=== PATIENT | female | born 1970 | race Hispanic/Latino ===

== ENCOUNTER 2017-05-08 18:05 | Emergency (ER) | payer MEDICARE ==
[~2017-05-08 18:05] MED LIST: AMLO5TAB4 PO; ATEN25TA PO; CALC500T13 PO; FERR324T4 PO; Glipizide PO; ONDA4TAB4 PO; SIMV20TA6 PO
== END 2017-05-08 18:54 | disposition home or self-care (01) ==
LOC: EDH 18:05
DX: S90.31XA Contusion of right foot, initial encounter (principal); I12.0 Hypertensive chronic kidney disease with stage 5 chronic kidney disease or end stage renal disease; E11.22 Type 2 diabetes mellitus with diabetic chronic kidney disease; N18.6 End stage renal disease; Z90.49 Acquired absence of other specified parts of digestive tract; Z88.0 Allergy status to penicillin; Z88.8 Allergy status to other drugs, medicaments and biological substances; W08.XXXA Fall from other furniture, initial encounter; Y93.89 Activity, other specified; Y92.89 Other specified places as the place of occurrence of the external cause; Y99.8 Other external cause status
CPT/HCPCS: 73630

== ENCOUNTER 2017-06-16 23:10 | Emergency (ER) | payer MEDICARE ==
[2017-06-16] MEDS ORDERED: ONDANSETRON HCL MDV 20ML 2 MG/ML VIAL ONE (23:37)
[2017-06-16 23:40] LABS: BASOPHILS % (AUTO) 1.3 % (0.0-5.0); EOSINOPHILS % (AUTO) 3.1 % (0.0-8.0); HEMATOCRIT 36.4 % (36-48); LYMPHOCYTES % (AUTO) 18.2 % (21.0-51.0); MEAN CORPUSCULAR HEMOGLOBIN 34.6 pg (27.0-33.0); MEAN CORPUSCULAR HGB CONC 33.7 g/dL (32.0-36.0); MEAN CORPUSCULAR VOLUME 102.5 fL (79-99); MONOCYTES % (AUTO) 6.2 % (3.0-13.0); NEUTROPHILS % (AUTO) 71.2 % (40.0-77.0); PLATELET COUNT (AUTO) 194 K/uL (130-400); RED BLOOD CELL COUNT(AUTO) 3.55 MIL/uL (4.00-5.50); RED CELL DISTRIBUTION WIDTH 14.8 % (11.0-15.5)
[2017-06-16 23:44] LABS: CARBON DIOXIDE 32 mmol/L (21-32); CHLORIDE 98 mmol/L (101-111); CREATININE 5.2 mg/dL (0.5-1.5); GLOMERULAR FILTR. RATE CALC 9 mL/min (>60); GLUCOSE,RANDOM 344 mg/dL (70-105); SODIUM SERUM 137 mmol/L (136-145); UREA NITROGEN, BLOOD 17 mg/dL (7-18)
[2017-06-16 23:46] LABS: INR 0.95 (0.85-1.15); PARTIAL THROMBOPLASTIN TIME 24.5 SEC (26.3-35.5)
[2017-06-16 23:57] LABS: ALANINE AMINOTRANSFERASE 15 U/L (12-78); ALBUMIN 3.6 g/dL (3.5-5.0); AMYLASE 51 U/L (25-115); ASPARTATE AMINOTRANSFERASE 16 U/L (10-37); BILIRUBIN,TOTAL 0.3 mg/dL (0.2-1.0); CREATINE KINASE MB < 0.5 ng/mL (0.5-3.6); CREATINE KINASE, TOTAL 34 U/L (21-232); LIPASE 153 U/L (114-286); TOTAL PROTEIN, SERUM 7.9 g/dL (6.0-8.3)
== END 2017-06-17 01:18 | disposition home or self-care (01) ==
LOC: EDH 23:10
DX: I12.0 Hypertensive chronic kidney disease with stage 5 chronic kidney disease or end stage renal disease (principal); R11.2 Nausea with vomiting, unspecified; E11.22 Type 2 diabetes mellitus with diabetic chronic kidney disease; N18.6 End stage renal disease; H93.19 Tinnitus, unspecified ear; Z99.2 Dependence on renal dialysis; Z98.890 Other specified postprocedural states; Z90.49 Acquired absence of other specified parts of digestive tract
CPT/HCPCS: 36415; 80053; 82150; 82550; 82553; 83690; 84484; 85025; 85610; 85730; 93005; 96374

== ENCOUNTER 2017-06-17 14:06 | Emergency (ER) | payer MEDICARE | END 2017-06-17 15:20 | disposition home or self-care (01) | LOC: EDH 14:06 | DX: S92.355A Nondisplaced fracture of fifth metatarsal bone, left foot, initial encounter for closed fracture (principal); E11.22 Type 2 diabetes mellitus with diabetic chronic kidney disease; I12.0 Hypertensive chronic kidney disease with stage 5 chronic kidney disease or end stage renal disease; N18.6 End stage renal disease; Z88.0 Allergy status to penicillin; Z88.8 Allergy status to other drugs, medicaments and biological substances; X50.0XXA Overexertion from strenuous movement or load, initial encounter; Y93.89 Activity, other specified; Y92.098 Other place in other non-institutional residence as the place of occurrence of the external cause; Y99.8 Other external cause status | CPT/HCPCS: 73630 ==

== ENCOUNTER 2017-07-10 15:20 | Emergency (ER) | payer MEDICARE | END 2017-07-10 16:46 | disposition home or self-care (01) | LOC: EDH 15:20 | DX: S30.0XXA Contusion of lower back and pelvis, initial encounter (principal); E11.22 Type 2 diabetes mellitus with diabetic chronic kidney disease; I12.0 Hypertensive chronic kidney disease with stage 5 chronic kidney disease or end stage renal disease; N18.6 End stage renal disease; Z88.0 Allergy status to penicillin; Z91.041 Radiographic dye allergy status; W18.39XA Other fall on same level, initial encounter; Y93.89 Activity, other specified; Y92.89 Other specified places as the place of occurrence of the external cause; Y99.8 Other external cause status | CPT/HCPCS: 72220 ==

== ENCOUNTER 2017-07-23 05:29 | Emergency (ER) | payer MEDICARE ==
[2017-07-23] MEDS ORDERED: CLONIDINE HCL 0.1 MG TABLET ONE (06:06)
[2017-07-23 06:55] LABS: APPEARANCE,URINE CLEAR (CLEAR); BILIRUBIN,URINE NEGATIVE (NEGATIVE); COLOR,URINE YELLOW (YELLOW); GLUCOSE, URINE (UA) >=1000 mg/dL (NEGATIVE); KETONES,URINE NEGATIVE (NEGATIVE); LEUKOCYTE ESTERASE ,URINE NEGATIVE (NEGATIVE); NITRATE,URINE NEGATIVE (NEGATIVE); OCCULT BLOOD,URINE NEGATIVE (NEGATIVE); PH,URINE 7.5 (5.0-8.0); PROTEIN,URINE 100 (NEGATIVE); UROBILINOGEN,URINE 0.2 mg/dL (0.2-1.0)
[2017-07-23 07:43] LABS: BACTERIA,URINE Rare /HPF (None Seen); RBC,URINE 0-1 /HPF (0-1); SQUAMOUS EPITHELIAL CELL,UR Few /HPF (0-2)
== END 2017-07-23 07:38 | disposition home or self-care (01) ==
LOC: EDH 05:29
DX: I12.0 Hypertensive chronic kidney disease with stage 5 chronic kidney disease or end stage renal disease (principal); N18.6 End stage renal disease; F41.9 Anxiety disorder, unspecified; K21.9 Gastro-esophageal reflux disease without esophagitis; Z99.2 Dependence on renal dialysis; Z88.0 Allergy status to penicillin; Z88.8 Allergy status to other drugs, medicaments and biological substances; Z98.890 Other specified postprocedural states
CPT/HCPCS: 81001; 82948

== ENCOUNTER 2017-07-26 08:35 | Emergency (ER) | payer MEDICARE ==
[2017-07-26 09:09] LABS: BASOPHILS % (AUTO) 0.8 % (0.0-5.0); EOSINOPHILS % (AUTO) 2.5 % (0.0-8.0); HEMATOCRIT 36.8 % (36-48); LYMPHOCYTES % (AUTO) 28.6 % (21.0-51.0); MEAN CORPUSCULAR HEMOGLOBIN 34.1 pg (27.0-33.0); MEAN CORPUSCULAR HGB CONC 35.2 g/dL (32.0-36.0); MEAN CORPUSCULAR VOLUME 96.8 fL (79-99); MONOCYTES % (AUTO) 6.7 % (3.0-13.0); NEUTROPHILS % (AUTO) 61.4 % (40.0-77.0); NUCLEATED RED BLOOD CELLS 0.1 % (0.0-0.19); PLATELET COUNT (AUTO) 273 K/uL (130-400); RED CELL DISTRIBUTION WIDTH 14.2 % (11.0-15.5); WHITE BLOOD COUNT (AUTO) 8.9 K/uL (4.8-10.8)
[2017-07-26 09:22] LABS: CREATININE 5.1 mg/dL (0.5-1.5); POTASSIUM 3.8 mmol/L (3.5-5.1)
[2017-07-26 09:28] LABS: INR 0.89 (0.85-1.15); PARTIAL THROMBOPLASTIN TIME 26.8 SEC (26.3-35.5); PROTHROMBIN TIME 9.4 SEC (9.6-11.6)
[2017-07-26 09:37] LABS: ALBUMIN 3.9 g/dL (3.5-5.0); BILIRUBIN,TOTAL 0.4 mg/dL (0.2-1.0); CREATINE KINASE MB 0.8 ng/mL (0.5-3.6); TOTAL PROTEIN, SERUM 8.3 g/dL (6.0-8.3)
[2017-07-26] MEDS ORDERED: LORAZEPAM 2 MG/ML 1 ML VIAL ONE (11:37)
== END 2017-07-26 12:53 | disposition home or self-care (01) ==
LOC: EDH 08:35
DX: E11.22 Type 2 diabetes mellitus with diabetic chronic kidney disease (principal); I12.0 Hypertensive chronic kidney disease with stage 5 chronic kidney disease or end stage renal disease; N18.6 End stage renal disease; F41.9 Anxiety disorder, unspecified; Z99.2 Dependence on renal dialysis; Z87.891 Personal history of nicotine dependence; Z88.0 Allergy status to penicillin; Z88.4 Allergy status to anesthetic agent; Z91.041 Radiographic dye allergy status
CPT/HCPCS: 36415; 71045; 80053; 82550; 82553; 82948; 83874; 84484 ×2; 85025; 85610; 85730; 93005 ×2; 99285; J2060

== ENCOUNTER 2017-12-17 05:41 | Inpatient (IN) | payer MEDICARE ==
[~2017-12-17] VITALS: Ht 154.9 cm; Wt 68.2 kg
[2017-12-17 06:55] LABS: EOSINOPHILS % (AUTO) 3.3 % (0.0-8.0); HEMATOCRIT 33.7 % (36-48); LYMPHOCYTES % (AUTO) 24.3 % (21.0-51.0); MEAN CORPUSCULAR HEMOGLOBIN 29.7 pg (27.0-33.0); MEAN CORPUSCULAR HGB CONC 32.8 g/dL (32.0-36.0); MEAN CORPUSCULAR VOLUME 90.8 fL (79-99); MONOCYTES % (AUTO) 7.5 % (3.0-13.0); NEUTROPHILS % (AUTO) 63.9 % (40.0-77.0); PLATELET COUNT (AUTO) 229 K/uL (130-400); RED BLOOD CELL COUNT(AUTO) 3.71 MIL/uL (4.00-5.50); RED CELL DISTRIBUTION WIDTH 15.6 % (11.0-15.5); WHITE BLOOD COUNT (AUTO) 6.5 K/uL (4.8-10.8)
[2017-12-17 07:04] LABS: CREATININE 7.1 mg/dL (0.5-1.5)
[2017-12-17 07:09] LABS: APPEARANCE,URINE Cloudy (CLEAR); BILIRUBIN,URINE Negative (NEGATIVE); COLOR,URINE Yellow (YELLOW); GLUCOSE, URINE (UA) 500 mg/dL (NEGATIVE); KETONES,URINE Trace mg/dL (NEGATIVE); LEUKOCYTE ESTERASE ,URINE Small (NEGATIVE); NITRATE,URINE Negative (NEGATIVE); OCCULT BLOOD,URINE Small (NEGATIVE); PROTEIN,URINE >=1000 (NEGATIVE); UROBILINOGEN,URINE 0.2 mg/dL (0.2-1.0)
[2017-12-17 07:16] LABS: ALBUMIN 3.6 g/dL (3.5-5.0); BILIRUBIN,TOTAL 0.4 mg/dL (0.2-1.0); TOTAL PROTEIN, SERUM 8.1 g/dL (6.0-8.3)
[2017-12-17 07:23] LABS: BACTERIA,URINE Few /HPF (None Seen)
[2017-12-17 07:26] LABS: RBC,URINE 0-1 /HPF (0-1)
[2017-12-17 07:27] LABS: AMORPHOUS SEDIMENT,UR Moderate /LPF (None Seen); SQUAMOUS EPITHELIAL CELL,UR Few /HPF (0-2)
[2017-12-17] MEDS ORDERED: LEVOFLOXACIN 500 MG/D5W 100 ML 100 ML ONE (07:52)
[2017-12-17] MEDS ORDERED: VANCOMYCIN 1GM+NS 250ML 250 ML IV SCH (08:30)
[2017-12-17 08:54] VITALS: BP 160/79
[2017-12-17] MEDS ORDERED: VANCOMYCIN PROTOCOL PER PHARMACY IV SCH (09:45)
[2017-12-17] MEDS ORDERED: CALCIUM CARBON 500MG CHEW TAB PO PRN ×2 (09:45→10:43)
[2017-12-17] MEDS ORDERED: IPRATROPIUM/ALBUTEROL SULFATE 3 ML SOLUTION IH PRN (09:45)
[2017-12-17] MEDS: INSULIN R PO SS1 SQ SCH ×3 (11:30→21:00)
[2017-12-17 11:38] VITALS: BP 155/78
[2017-12-17] MEDS: ONDANSETRON 4 MG TABLET PO SCH ×2 (12:44→17:00)
[2017-12-17 15:51] VITALS: BP 178/85
[2017-12-17] MEDS ORDERED: SODIUM CHLORIDE 0.9% 1000ML 1,000 ML IV PRN (16:00)
[2017-12-17] MEDS ORDERED: ALBUMIN (HUMAN) 25% 100 ML IV PRN (16:00)
[2017-12-17] MEDS ORDERED: 0.9% SODIUM CHLORIDE 250 ML IV BAG IV PRN (16:00)
[2017-12-17] MEDS ORDERED: LOSA50TA25 PO (18:29)
[2017-12-17] MEDS ORDERED: BRIM10DR16 OP (18:32)
[2017-12-17 19:36] VITALS: BP 153/75
[2017-12-17] MEDS: SIMVASTATIN 20 MG TABLET PO SCH (21:00)
[2017-12-17] MEDS: LOSARTAN 50 MG TABLET PO SCH (21:50)
[2017-12-17] MEDS ORDERED: AMLODIPINE BESYLATE 5 MG TAB PO ONE (21:54)
[2017-12-17 23:20] VITALS: BP 143/73
[2017-12-18 03:10] VITALS: BP 129/82
[2017-12-18 04:32] LABS: HEMATOCRIT 29.6 % (36-48); MEAN CORPUSCULAR HEMOGLOBIN 31.2 pg (27.0-33.0); MEAN CORPUSCULAR HGB CONC 34.8 g/dL (32.0-36.0); MEAN CORPUSCULAR VOLUME 89.8 fL (79-99); PLATELET COUNT (AUTO) 224 K/uL (130-400); RED CELL DISTRIBUTION WIDTH 15.5 % (11.0-15.5); WHITE BLOOD COUNT (AUTO) 5.2 K/uL (4.8-10.8)
[2017-12-18 04:44] LABS: CREATININE 4.8 mg/dL (0.5-1.5); PHOSPHORUS 3.6 mg/dL (2.5-4.9); POTASSIUM 3.7 mmol/L (3.5-5.1)
[2017-12-18 04:55] LABS: BASOPHILS % (MANUAL) 2 % (0-2); EOSINOPHILS % (MANUAL) 10 % (1-6); LYMPHOCYTES % (MANUAL) 38 % (22-44); MAN.DIFF COMMENT-IMPRESSION MANUAL DIFFERENTIAL; MONOCYTES % (MANUAL) 4 % (2-9); PLATELET MORPHOLOGY COMMENT ADEQUATE; SEGMENTED NEUTROPHILS % 46 % (40-70)
[2017-12-18] MEDS: ONDANSETRON 4 MG TABLET PO SCH ×3 (07:30→17:00)
[2017-12-18] MEDS: INSULIN R PO SS1 SQ SCH ×4 (07:30→20:38)
[2017-12-18 08:00] VITALS: BP 133/71
[2017-12-18] MEDS: ATENOLOL 25 MG TABLET PO SCH (09:00)
[2017-12-18] MEDS: DORZOLAMIDE 2% OP SCH (09:00)
[2017-12-18] MEDS: BRIMONIDINE 0.15% OP SCH (09:00)
[2017-12-18] MEDS ORDERED: AMLODIPINE BESYLATE 5 MG TAB PO SCH (09:00)
[2017-12-18] MEDS: LEVOFLOXACIN 250 MG/D5W 50ML 50 ML IV SCH (09:53)
[2017-12-18] MEDS ORDERED: GUAIFENESIN SUGAR-FREE 100 MG/5 ML UDCUP PO PRN (11:00)
[2017-12-18] MEDS ORDERED: IPRATROPIUM/ALBUTEROL SULFATE 3 ML SOLUTION IH PRN (11:00)
[2017-12-18 11:49] VITALS: BP 150/74
[2017-12-18 15:42] VITALS: BP 149/76
[2017-12-18 19:42] VITALS: BP 155/87
[2017-12-18] MEDS: AMLODIPINE BESYLATE 5 MG TAB PO SCH (20:20)
[2017-12-18] MEDS: LOSARTAN 50 MG TABLET PO SCH (20:20)
[2017-12-18] MEDS: SIMVASTATIN 20 MG TABLET PO SCH (20:37)
[2017-12-18 23:20] VITALS: BP 189/83
[2017-12-19] MEDS ORDERED: AMLODIPINE BESYLATE 5 MG TAB PO PRN (01:15)
[2017-12-19 04:20] VITALS: BP 153/74
[2017-12-19 04:51] LABS: MEAN CORPUSCULAR HEMOGLOBIN 31.4 pg (27.0-33.0); MEAN CORPUSCULAR HGB CONC 34.9 g/dL (32.0-36.0); PLATELET COUNT (AUTO) 222 K/uL (130-400); RED BLOOD CELL COUNT(AUTO) 3.11 MIL/uL (4.00-5.50); RED CELL DISTRIBUTION WIDTH 15.4 % (11.0-15.5); WHITE BLOOD COUNT (AUTO) 6.7 K/uL (4.8-10.8)
[2017-12-19 04:59] LABS: BAND NEUTROPHILS % (MANUAL) 1 % (0-2); BASOPHILS % (MANUAL) 5 % (0-2); EOSINOPHILS % (MANUAL) 4 % (1-6); LYMPHOCYTES % (MANUAL) 28 % (22-44); MAN.DIFF COMMENT-IMPRESSION MANUAL DIFFERENTIAL; SEGMENTED NEUTROPHILS % 62 % (40-70)
[2017-12-19 05:00] LABS: CREATININE 6.8 mg/dL (0.5-1.5); PLATELET MORPHOLOGY COMMENT ADEQUATE
[2017-12-19] MEDS: INSULIN R PO SS1 SQ SCH ×5 (06:02→20:20)
[2017-12-19] MEDS: ONDANSETRON 4 MG TABLET PO SCH ×3 (06:02→17:00)
[2017-12-19] MEDS ORDERED: ALBUMIN (HUMAN) 25% 100 ML IV PRN (06:45)
[2017-12-19] MEDS ORDERED: SODIUM CHLORIDE 0.9% 1000ML 1,000 ML IV PRN (06:45)
[2017-12-19] MEDS ORDERED: 0.9% SODIUM CHLORIDE 250 ML IV BAG IV PRN (06:45)
[2017-12-19 07:00] VITALS: BP 156/80
[2017-12-19] MEDS: DORZOLAMIDE 2% OP SCH (09:00)
[2017-12-19] MEDS: BRIMONIDINE 0.15% OP SCH (09:00)
[2017-12-19 11:00] VITALS: BP 162/71
[2017-12-19] MEDS: ATENOLOL 25 MG TABLET PO SCH (13:03)
[2017-12-19] MEDS: LEVOFLOXACIN 250 MG/D5W 50ML 50 ML IV SCH (13:04)
[2017-12-19 16:00] VITALS: BP 154/76
[2017-12-19 20:00] VITALS: BP 169/69
[2017-12-19] MEDS: SIMVASTATIN 20 MG TABLET PO SCH ×2 (20:16→20:21)
[2017-12-19] MEDS: LOSARTAN 50 MG TABLET PO SCH (20:16)
[2017-12-19] MEDS: AMLODIPINE BESYLATE 5 MG TAB PO SCH (20:17)
[2017-12-20] VITALS: BP 147/73
[2017-12-20 04:00] VITALS: BP 138/72
[2017-12-20 04:05] LABS: HEMATOCRIT 29.8 % (36-48); MEAN CORPUSCULAR HEMOGLOBIN 31.6 pg (27.0-33.0); MEAN CORPUSCULAR HGB CONC 34.8 g/dL (32.0-36.0); MEAN CORPUSCULAR VOLUME 90.7 fL (79-99); PLATELET COUNT (AUTO) 254 K/uL (130-400); RED BLOOD CELL COUNT(AUTO) 3.28 MIL/uL (4.00-5.50); RED CELL DISTRIBUTION WIDTH 15.9 % (11.0-15.5); WHITE BLOOD COUNT (AUTO) 5.4 K/uL (4.8-10.8)
[2017-12-20 04:25] LABS: CREATININE 5.6 mg/dL (0.5-1.5); POTASSIUM 3.9 mmol/L (3.5-5.1)
[2017-12-20] MEDS: INSULIN R PO SS1 SQ SCH ×3 (06:23→16:23)
[2017-12-20] MEDS: ONDANSETRON 4 MG TABLET PO SCH ×3 (06:23→16:23)
[2017-12-20 08:00] VITALS: BP 128/61
[2017-12-20] MEDS: DORZOLAMIDE 2% OP SCH (08:22)
[2017-12-20] MEDS: BRIMONIDINE 0.15% OP SCH (08:22)
[2017-12-20] MEDS: ATENOLOL 25 MG TABLET PO SCH (08:23)
[2017-12-20] MEDS ORDERED: LEVOFLOXACIN 500 MG TABLET PO SCH ×2 (10:30→20:00)
[2017-12-20 11:41] VITALS: BP 135/67
[2017-12-20] MEDS ORDERED: LEVO500T2 PO (15:24)
[2017-12-20 16:00] VITALS: BP 151/69
[2017-12-24] MEDS ORDERED: VANCOMYCIN 1GM+NS 250ML 250 ML IV SCH (09:00)
== END 2017-12-20 18:51 | disposition home or self-care (01) | DRG 193 ==
LOC: EDH 05:41 → EDHIP 07:17 → 3CH 08:20
PROVIDERS: ADMIT Internal Medicine Nephrology; ATTEND Internal Medicine Nephrology
PROC: 5A1D70Z Performance of Urinary Filtration, Intermittent, Less than 6 Hours Per Day (ICD-10-PCS; principal; 2017-12-17)
PROC: 5A1D70Z Performance of Urinary Filtration, Intermittent, Less than 6 Hours Per Day (ICD-10-PCS; 2017-12-19)
DX: J18.9 Pneumonia, unspecified organism (principal); N18.6 End stage renal disease; I12.0 Hypertensive chronic kidney disease with stage 5 chronic kidney disease or end stage renal disease; E11.22 Type 2 diabetes mellitus with diabetic chronic kidney disease; E78.00 Pure hypercholesterolemia, unspecified; E11.21 Type 2 diabetes mellitus with diabetic nephropathy; E11.51 Type 2 diabetes mellitus with diabetic peripheral angiopathy without gangrene; Z82.49 Family history of ischemic heart disease and other diseases of the circulatory system; Z28.21 Immunization not carried out because of patient refusal; Z83.3 Family history of diabetes mellitus; Z91.19 Patient's noncompliance with other medical treatment and regimen; Z99.2 Dependence on renal dialysis; Z79.899 Other long term (current) drug therapy; Z88.0 Allergy status to penicillin; Z88.6 Allergy status to analgesic agent; Z91.041 Radiographic dye allergy status
CPT/HCPCS: 36415; 71045; 80048; 80053; 81001; 82550; 82948; 83605; 83874; 84100; 84484; 85025; 85027; 87040; 87804; 90935; 93005; 94664; J1815; J1956; J3370; Q0162

== ENCOUNTER 2018-02-07 19:56 | Emergency (ER) | payer MEDICARE ==
[~2018-02-07 19:56] MED LIST changes: +BRIM10DR16 OP; -FERR324T4 PO; -Glipizide PO; +LEVO500T2 PO; +LOSA50TA25 PO; -ONDA4TAB4 PO; -SIMV20TA6 PO
[2018-02-07 20:37] LABS: BASOPHILS % (AUTO) 0.7 % (0.0-5.0); EOSINOPHILS % (AUTO) 2.7 % (0.0-8.0); HEMATOCRIT 32.2 % (36-48); LYMPHOCYTES % (AUTO) 21.4 % (21.0-51.0); MEAN CORPUSCULAR HEMOGLOBIN 30.7 pg (27.0-33.0); MEAN CORPUSCULAR VOLUME 90.5 fL (79-99); MONOCYTES % (AUTO) 14.3 % (3.0-13.0); NEUTROPHILS % (AUTO) 60.9 % (40.0-77.0); PLATELET COUNT (AUTO) 126 K/uL (130-400); RED BLOOD CELL COUNT(AUTO) 3.55 MIL/uL (4.00-5.50); RED CELL DISTRIBUTION WIDTH 16.4 % (11.0-15.5); WHITE BLOOD COUNT (AUTO) 6.7 K/uL (4.8-10.8)
[2018-02-07 20:43] LABS: APPEARANCE,URINE CLEAR (CLEAR); BILIRUBIN,URINE NEGATIVE (NEGATIVE); COLOR,URINE YELLOW (YELLOW); GLUCOSE, URINE (UA) 250 mg/dL (NEGATIVE); KETONES,URINE NEGATIVE (NEGATIVE); LEUKOCYTE ESTERASE ,URINE NEGATIVE (NEGATIVE); NITRATE,URINE NEGATIVE (NEGATIVE); OCCULT BLOOD,URINE MODERATE (NEGATIVE); PROTEIN,URINE >=300 (NEGATIVE); UROBILINOGEN,URINE 0.2 mg/dL (0.2-1.0)
[2018-02-07 20:46] LABS: BACTERIA,URINE Few /HPF (None Seen); SQUAMOUS EPITHELIAL CELL,UR 0-2 /HPF (0-2); WBC,URINE 0-1 /HPF (0-1)
[2018-02-07 20:52] LABS: INR 0.94 (0.85-1.15); PARTIAL THROMBOPLASTIN TIME 29.9 SEC (26.3-35.5); PROTHROMBIN TIME 9.9 SEC (9.6-11.6)
[2018-02-07 21:04] LABS: RAPID GROUP A STREP NEGATIVE (NEGATIVE)
== END 2018-02-07 22:38 | disposition home or self-care (01) ==
LOC: EDH 19:56
DX: J01.90 Acute sinusitis, unspecified (principal); R50.9 Fever, unspecified; I12.0 Hypertensive chronic kidney disease with stage 5 chronic kidney disease or end stage renal disease; E11.22 Type 2 diabetes mellitus with diabetic chronic kidney disease; N18.6 End stage renal disease; Z91.041 Radiographic dye allergy status; Z88.0 Allergy status to penicillin; Z90.49 Acquired absence of other specified parts of digestive tract; Z99.2 Dependence on renal dialysis; Z98.890 Other specified postprocedural states; Z87.891 Personal history of nicotine dependence
CPT/HCPCS: 36415; 70220; 71045; 81001; 82550; 83605; 84484; 85025; 85610; 85730; 87040; 87804; 87880; 93005

== ENCOUNTER 2018-12-22 00:03 | Emergency (ER) | payer MEDICARE ==
[~2018-12-22 00:03] MED LIST changes: -LOSA50TA25 PO; +LOSA50TA64 PO
[2018-12-22] MEDS ORDERED: ONDANSETRON HCL 4 MG/2 ML VIAL ONE (00:53)
[2018-12-22] MEDS ORDERED: SODIUM CHLORIDE 0.9% 1000ML 1,000 ML IV ONE (00:54)
[2018-12-22] MEDS ORDERED: SODIUM CHLORIDE 0.9% 500ML 500 ML IV ONE (00:54)
[2018-12-22 00:55] LABS: BASOPHILS % (AUTO) 0.4 % (0.0-5.0); EOSINOPHILS % (AUTO) 2.3 % (0.0-8.0); HEMATOCRIT 36.2 % (36-48); LYMPHOCYTES % (AUTO) 5.5 % (21.0-51.0); MEAN CORPUSCULAR HEMOGLOBIN 33.8 pg (27.0-33.0); MEAN CORPUSCULAR HGB CONC 33.6 g/dL (32.0-36.0); MEAN CORPUSCULAR VOLUME 100.7 fL (79-99); MONOCYTES % (AUTO) 5.8 % (3.0-13.0); PLATELET COUNT (AUTO) 176 K/uL (130-400); RED BLOOD CELL COUNT(AUTO) 3.59 MIL/uL (4.00-5.50); RED CELL DISTRIBUTION WIDTH 15.3 % (11.0-15.5); WHITE BLOOD COUNT (AUTO) 12.7 K/uL (4.8-10.8)
[2018-12-22 01:03] LABS: CREATININE 5.8 mg/dL (0.5-1.5); POTASSIUM 4.9 mmol/L (3.5-5.1)
[2018-12-22 01:09] LABS: ALBUMIN 3.6 g/dL (3.5-5.0); BILIRUBIN,TOTAL 0.4 mg/dL (0.2-1.0); MAGNESIUM 2.9 mg/dL (1.80-2.40); TOTAL PROTEIN, SERUM 7.9 g/dL (6.0-8.3)
== END 2018-12-22 02:21 | disposition home or self-care (01) ==
LOC: EDH 00:03
DX: E86.9 Volume depletion, unspecified (principal); R11.2 Nausea with vomiting, unspecified; R19.7 Diarrhea, unspecified; I12.0 Hypertensive chronic kidney disease with stage 5 chronic kidney disease or end stage renal disease; E11.22 Type 2 diabetes mellitus with diabetic chronic kidney disease; N18.6 End stage renal disease; Z91.041 Radiographic dye allergy status; Z88.0 Allergy status to penicillin; Z88.8 Allergy status to other drugs, medicaments and biological substances
CPT/HCPCS: 36415; 80053; 83735; 85025; 96374; 99284; J2405; J7030; J7040

== ENCOUNTER 2019-02-28 13:18 | Emergency (ER) | payer MEDICARE | END 2019-02-28 15:11 | disposition home or self-care (01) | LOC: EDH 13:18 | DX: S80.02XA Contusion of left knee, initial encounter (principal); S80.01XA Contusion of right knee, initial encounter; S60.211A Contusion of right wrist, initial encounter; E11.22 Type 2 diabetes mellitus with diabetic chronic kidney disease; I12.0 Hypertensive chronic kidney disease with stage 5 chronic kidney disease or end stage renal disease; N18.6 End stage renal disease; Z99.2 Dependence on renal dialysis; Z91.041 Radiographic dye allergy status; Z88.0 Allergy status to penicillin; Z88.4 Allergy status to anesthetic agent; Z87.891 Personal history of nicotine dependence; W01.0XXA Fall on same level from slipping, tripping and stumbling without subsequent striking against object, initial encounter; Y93.01 Activity, walking, marching and hiking; Y92.89 Other specified places as the place of occurrence of the external cause; Y99.8 Other external cause status | CPT/HCPCS: 73110 ==